=== PATIENT | female | born 1940 | race Caucasian/White ===

== ENCOUNTER → 2017-09-28 | Outpatient (CLI) | payer OTHER, MEDICARE ==
[~2017-09-28] MED LIST: ALBUTEROL2.5 MG/31 INH; ATORVASTATIN CA40 MG PO; BACTRIM DS TAB1 EACH PO; CALCIUM 600 +1 EAC1 PO; CARDURA4 MG PO; COUMADIN 2 MG TA2 M1 PO; FISH OIL 1,2001 EAC4 PO; FUROSEMIDE 40 M40 M1; IPRATROPIUM INH; KLOR-CON 10 ER10 MEQ PO; MUCINEX600 MG PO; MULTI-VITAMIN1 EAC5 PO; NORVASC10 MG PO; POTASSIUM PO; PREDNISONE 10 M10 M1; PREDNISONE 10 M10 M1 PO; PROAIR HFA8.5 GM INH; SINGULAIR 10 MG10 M1 PO; SYMBICORT160 MCG/4. INH; TRIAMTERENE-HC1 EAC1 PO; VITAMIN D1000 UNI1 PO
== END ==
LOC: RAD 12:39
DX: M19.072 Primary osteoarthritis, left ankle and foot (principal); M79.89 Other specified soft tissue disorders

== ENCOUNTER → 2018-09-16 | Outpatient (CLI) | payer OTHER, MEDICARE | LOC: RAD 09:04 | DX: J44.9 Chronic obstructive pulmonary disease, unspecified (principal); J84.10 Pulmonary fibrosis, unspecified; J98.4 Other disorders of lung ==

== ENCOUNTER → 2019-08-22 | Outpatient (CLI) | payer OTHER | LOC: CAT 08:23 | DX: Z13.6 Encounter for screening for cardiovascular disorders (principal); E78.00 Pure hypercholesterolemia, unspecified; I25.10 Atherosclerotic heart disease of native coronary artery without angina pectoris ==

== ENCOUNTER → 2020-03-23 | Outpatient (CLI) | payer OTHER, MEDICARE | LOC: RAD 13:43 | DX: J44.9 Chronic obstructive pulmonary disease, unspecified (principal); J84.10 Pulmonary fibrosis, unspecified; I70.0 Atherosclerosis of aorta ==